=== PATIENT | male | born 1975 | race Caucasian/White ===

== ENCOUNTER 2022-11-18 09:22 | Emergency (ER) | payer MEDICARE, MEDICAID, SELFPAY ==
--- NOTE | 2022-11-18 09:45 | PC.NURSE ---
PT WAS IN WAITING ROOM LESS THAN 10 MINUTES AND WALKED OUT. ATTEMPTED TO FIND PATIENT OUTSIDE. UNABLE TO LOCATE PATIENT
== END 2022-11-18 10:10 | disposition left against medical advice (07) ==
LOC: HO.ED 10:09
PROVIDERS: Emergency Provider Emergency Medicine; PCP Internal Medicine
DX: R20.0 Anesthesia of skin (principal)

== ENCOUNTER 2023-06-28 13:50 | Inpatient (IN) | payer MEDICARE, MEDICAID, SELFPAY ==
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
[2023-06-28 14:04] VITALS: PULSE 110; O2SAT 98; BMI 29.8
[2023-06-28 14:11] VITALS: RESP 16
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
--- NOTE | 2023-06-28 14:31 | PC.NURSE ---
RE: Med Rec Patient reports to this RN that he is not prescribed any medication at this time and he does not take anything
[2023-06-28 14:32] LABS: Basophils Absolute Auto 0.1 X10*3/uL (0.0-0.2); Basophils Percent Auto 1.1 % (0-2); Eosinophils Absolute Auto 0.1 X10*3/uL (0.0-0.4); Hematocrit 45.6 % (42.0-52.0); Hemoglobin 15.9 g/dl (14.0-18.0); Imm Gran Abs Auto 0.05 X10*3/uL (0.00-0.03); Imm Gran Pct Auto 0.5 % (0.0-0.4); Lymphocytes Percent Auto 18.6 % (20-40); MANUAL DIFF FLAG NO; Mean Corpuscular HGB Conc 34.9 g/dl (31.0-36.0); Mean Corpuscular Hemoglobin 30.4 pg (27.0-33.0); Mean Corpuscular Volume 87.2 fL (80.0-98.0); Mean Platelet Volume 11.3 fL (9.4-12.4); Monocytes Absolute Auto 0.8 X10*3/uL (0.1-1.2); Monocytes Percent Auto 7.3 % (2-11); Neutrophils Absolute Auto 7.9 x10*3/uL (2.0-8.3); Neutrophils Percent Auto 71.5 % (45-73); Platelet Count 206 X10*3/uL (160-400); Red Blood Count 5.23 X10*6/uL (4.60-5.80); Red Cell Distribution Width 13.6 % (11.0-16.0)
[2023-06-28 14:34] LABS: Appearance Urine Clear; Color Urine Dark Yellow; Glucose Urine UA Negative (Negative); Leukocyte Esterase Urine Negative (Negative); Nitrite Urine Negative (Negative); PH 5.5 (5.0-9.0); Specific Gravity - Urine >= 1.030 (1.005-1.025); UMIC TRIGGER UACC YES; Urine Blood Negative (Negative); Urine Ketones 15 mg/dL (Negative); Urine Protein 30 (1+) mg/dL (Neg-Trace)
[2023-06-28 14:36] LABS: Bacteria Urine None Seen (None Seen); Hyaline Casts Urine 0-2 /LPF (0-2); RBC Urine 0-2 /HPF (0-2); Squamous Epithelial Cell Urine 0-2 /HPF (0-2); WBC Urine 0-5 /HPF (0-5)
[2023-06-28 14:43] LABS: Amphetamine Screen Urine Not Detected (Not Detect); Barbiturates, Urine Not Detected (Not Detect); Benzodiazepines Screen Urine Not Detected (Not Detect); Cannabinoid Screen Urine POSITIVE (Not Detect); Cocaine Screen Urine Not Detected (Not Detect); Fentanyl, urine Not Detected (Not Detect); Opiate Screen Urine Not Detected (Not Detect); Phencyclidine Screen Urine Not Detected (Not Detect)
[2023-06-28 14:49] LABS: COVID-19 Test Negative (Negative); IDNOW Serial# 6674DD1D
[2023-06-28 14:53] LABS: Alanine Aminotransferase 25 U/L (0-40); Albumin Level 4.4 g/dL (3.5-5.0); Alkaline Phosphatase 66 U/L (39-117); Anion Gap 12 (12-20); Aspartate Amino Transferase 36 U/L (5-37); Bilirubin Total 1.1 mg/dL (0.0-1.0); Blood Urea Nitrogen 16 mg/dL (9-16); Calcium 9.3 mg/dL (8.4-10.2); Carbon Dioxide 26 mmol/L (22-29); Chloride 104 mmol/L (96-108); Creatinine Clr Calc Pharmacy 79.7; Estimated Glomerular Filt Rate > 60; Ethanol < 10 mg/dL; Glucose Random 121 mg/dL (60-115); Potassium 3.8 mmol/L (3.3-5.1); Sodium 138 mmol/L (135-145); Total Protein 7.2 g/dL (6.5-8.0)
--- NOTE | 2023-06-28 15:34 | PC.NURSE ---
Late entry: patients at bedside. Pt and arguing, continuing to escalate. This RN attempted to redirect without success, attempted to have patients leave also without success. Security removed patients from bedside. Pt now resting on bed without issue at this time
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
[2023-06-28] MEDS: LORazepam 1 MG TABLET 2 MG PO (18:28)
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
--- NOTE | 2023-06-28 19:19 | PC.NURSE ---
pt currently agitated, refusing to take PO medications but is redirectable to his room. Pt is currently staring at this RN through bedroom door, no immediate distress at this time
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
[2023-06-28 23:31] VITALS: BP 125/83; PULSE 54; TEMP 36.4; O2SAT 97
--- NOTE | 2023-06-29 07:22 | ECG_ITS ---
Test Reason : QT check Blood Pressure : / mmHG Vent. Rate : 070 BPM Atrial Rate : 070 BPM P-R Int : 128 ms QRS Dur : 082 ms QT Int : 410 ms P-R-T Axes : 056 -32 022 degrees QTc Int : 442 ms Normal sinus rhythm Left axis deviation Abnormal ECG When compared with ECG of 02-DEC-2009 21:04, No significant change was found Referred By: Cira Torres Electronically Signed By:MICHELLE YORK
[2023-06-29 08:58] VITALS: BP 105/86; PULSE 69; RESP 18; TEMP 36.6; O2SAT 96
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
[2023-06-29 13:49] VITALS: BMI 23.7
[2023-06-29 13:50] VITALS: BP 126/83; PULSE 80; RESP 18; TEMP 36.2; O2SAT 98
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
[2023-06-30 09:15] VITALS: BP 128/82; PULSE 78; RESP 18; TEMP 36.2; O2SAT 100
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
[2023-06-30 16:00] VITALS: BP 149/73; PULSE 73; RESP 15; TEMP 36.6; O2SAT 100
[2023-07-01 10:05] VITALS: BMI 24.1
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
== END 2023-07-01 11:02 | disposition home or self-care (01) | DRG 882 ==
LOC: HO.ED 15:53 → HO.PM5 06-29 12:55
PROVIDERS: Admitting Provider Psychiatry & Neurology Psychiatry; Emergency Provider Emergency Medicine; PCP Internal Medicine; Visit Provider Psychiatry & Neurology Psychiatry
DX: F43.25 Adjustment disorder with mixed disturbance of emotions and conduct (principal); Z20.822 Contact with and (suspected) exposure to COVID-19
CPT/HCPCS: 70450; 80053; 80307; 81001; 85025; 87635; 93005; 99285

== ENCOUNTER → 2023-06-29 07:22 | Outpatient (BNV) | payer MEDICARE, MEDICAID, SELFPAY | PROVIDERS: Emergency Provider Emergency Medicine; PCP Internal Medicine; Visit Provider Internal Medicine | DX: R94.31 Abnormal electrocardiogram [ECG] [EKG] (principal) | CPT/HCPCS: 93010 ==

== ENCOUNTER → 2023-06-29 12:41 | Outpatient (BNV) | payer MEDICARE, MEDICAID, SELFPAY | PROVIDERS: Admitting Provider Psychiatry & Neurology Psychiatry; Emergency Provider Emergency Medicine; PCP Internal Medicine; Visit Provider Psychiatry & Neurology Psychiatry | DX: F43.25 Adjustment disorder with mixed disturbance of emotions and conduct (principal) | CPT/HCPCS: 99222; 99239 ==

== ENCOUNTER 2023-08-16 13:38 | Outpatient (REF) | payer MEDICARE, MEDICAID, SELFPAY ==
[2023-08-16 13:49] LABS: MANUAL DIFF FLAG NO
[2023-08-16 14:43] LABS: Basophils Absolute Auto 0.1 X10*3/uL (0.0-0.2); Basophils Percent Auto 1.2 % (0-2); Eosinophils Absolute Auto 0.3 X10*3/uL (0.0-0.4); Eosinophils Percent Auto 3.4 % (0-4); Hematocrit 46.5 % (42.0-52.0); Hemoglobin 16.1 g/dl (14.0-18.0); Imm Gran Abs Auto 0.09 X10*3/uL (0.00-0.03); Imm Gran Pct Auto 1.1 % (0.0-0.4); Lymphocytes Absolute Auto 2.7 X10*3/uL (1.2-4.9); Lymphocytes Percent Auto 32.6 % (20-40); Mean Corpuscular HGB Conc 34.6 g/dl (31.0-36.0); Mean Corpuscular Hemoglobin 30.5 pg (27.0-33.0); Mean Corpuscular Volume 88.1 fL (80.0-98.0); Mean Platelet Volume 11.9 fL (9.4-12.4); Monocytes Absolute Auto 0.6 X10*3/uL (0.1-1.2); Monocytes Percent Auto 7.6 % (2-11); Neutrophils Absolute Auto 4.4 x10*3/uL (2.0-8.3); Neutrophils Percent Auto 54.1 % (45-73); Platelet Count 191 X10*3/uL (160-400); Red Blood Count 5.28 X10*6/uL (4.60-5.80); Red Cell Distribution Width 13.2 % (11.0-16.0); White Blood Count 8.2 X10*3/uL (4.8-10.8)
[2023-08-16 15:20] LABS: Alanine Aminotransferase 23 U/L (0-40); Albumin Level 4.3 g/dL (3.5-5.0); Alkaline Phosphatase 61 U/L (39-117); Anion Gap 10 (12-20); Aspartate Amino Transferase 22 U/L (5-37); Bilirubin Total 0.8 mg/dL (0.0-1.0); Blood Urea Nitrogen 12 mg/dL (9-16); Calcium 9.3 mg/dL (8.4-10.2); Carbon Dioxide 28 mmol/L (22-29); Chloride 105 mmol/L (96-108); Cholesterol 191 mg/dL (<200); Estimated Glomerular Filt Rate > 60; Glucose Random 97 mg/dL (60-115); HDL Cholesterol 56 mg/dL (>40); LDL Cholesterol Calculated 118 mg/dL (<100); Potassium 4.1 mmol/L (3.3-5.1); Sodium 139 mmol/L (135-145); Total Protein 6.8 g/dL (6.5-8.0); Triglycerides 88 mg/dL (<150)
[2023-08-16 15:38] LABS: Thyroid Stimulating Hormone 1.02 uIU/mL (0.32-4.0)
== END 2023-08-16 13:39 | disposition home or self-care (01) ==
LOC: HO.LAB 13:38
PROVIDERS: PCP Internal Medicine; Visit Provider Internal Medicine
DX: L40.8 Other psoriasis (principal); R51.9 Headache, unspecified; R63.4 Abnormal weight loss; S06.0XAD Concussion with loss of consciousness status unknown, subsequent encounter
CPT/HCPCS: 36415; 80053; 80061; 84443; 85025